=== PATIENT | female | born 1950 ===

== ENCOUNTER 2018-02-28 10:28 | Outpatient (CLI) | payer MEDICARE, OTHER | END 2018-02-28 10:29 | disposition home or self-care (01) | LOC: C.LAB 10:28 | DX: I10 Essential (primary) hypertension (principal); E78.5 Hyperlipidemia, unspecified; E87.6 Hypokalemia; N20.0 Calculus of kidney; F32.9 Major depressive disorder, single episode, unspecified; N18.3 Chronic kidney disease, stage 3 (moderate) ==